=== PATIENT | male | born 1955 | race Caucasian/White ===

== ENCOUNTER 2016-10-16 22:15 | Emergency (ER) | payer BC ==
[~2016-10-16] VITALS: Ht 175.3 cm; Wt 136.0 kg
[2016-10-16 22:20] VITALS: BP 142/78; PULSE 80; RESP 20; TEMP 97.7; O2SAT 97
--- NOTE | 2016-10-16 22:35 | PD ---
HPI Chief Complaint: Respiratory Symptoms Time Seen by Provider: 22:27 Travel History International Travel<30 days: No Contact w/Intl Traveler<30days: No Traveled to known affect area: No History of Present Illness HPI 61-year-old male with history of CAD, CABG, 1 pack per day smoker, here for evaluation of cough, congestion, shortness of breath. The patient drove down here 2-3 days ago from [place] to see the car race. He reports that on the trip down here he began to have shortness of breath and cough productive of yellowish sputum. He reports similar symptoms about one month ago which cleared with antibiotics and an inhaler. He denies fevers or chills. Shortness of breath is at rest, worse with exertion. No chest pain. No history of DVT or PE. PFSH Past Medical History Hx Anticoagulant Therapy: Yes (plavix) Cardiovascular Problems: Yes Social History Alcohol Use: Yes Tobacco Use: Yes Allergies-Medications (Allergen,Severity, Reaction): Coded Allergies: No Known Allergies (Unverified , 10/16/16) Reported Meds & Prescriptions Reported Meds & Active Scripts Active Prednisone 50 Mg Tab 50 Mg PO DAILY 5 Days Zithromax Z-Cristopher (Azithromycin) 250 Mg Dspk 250 Mg PO DIRECTED 500 MG (2 tabs) day 1, then 1 tab days 2-5. Reported Ventolin Hfa 18 GM Inh (Albuterol Sulfate) 90 Mcg/Act Aer 2 Puff INH Q4-6H PRN Plavix (Clopidogrel Bisulfate) 75 Mg Tab 75 Mg PO DAILY Aldactone (Spironolactone) 25 Mg Tab 25 Mg PO DAILY Aspirin 325 Mg Tab 325 Mg PO DAILY Lisinopril 10 Mg Tab 10 Mg PO DAILY Lipitor (Atorvastatin Calcium) 80 Mg Tab 80 Mg PO HS Coreg (Carvedilol) 12.5 Mg Tab 12.5 Mg PO BID Review of Systems Except as stated in HPI: all other systems reviewed are Neg Physical Exam Narrative GENERAL: Well-developed, well-nourished, overweight, no acute distress. SKIN: Warm and dry. HEAD: Atraumatic. Normocephalic. EYES: Pupils equal and round. No scleral icterus. No injection or drainage. ENT: Mucous membranes pink and moist. NECK: Trachea midline. No JVD. CARDIOVASCULAR: Regular rate and rhythm. RESPIRATORY: No accessory muscle use. Coarse breath sounds bilaterally with inspiratory and expiratory wheezes bilaterally. Breath sounds equal bilaterally. GASTROINTESTINAL: Abdomen soft, non-tender, nondistended. MUSCULOSKELETAL: No obvious deformities. No clubbing. No cyanosis. No edema. NEUROLOGICAL: Awake and alert. No obvious cranial nerve deficits. Motor grossly within normal limits. Normal speech. PSYCHIATRIC: Appropriate mood and affect; insight and judgment normal. Data Data Last Documented VS Vital Signs Date Time Temp Pulse Resp B/P Pulse Ox O2 Delivery O2 Flow Rate FiO2 10/17/16 02:00 98.0 66 20 144/77 95 Room Air Orders Complete Blood Count With Diff (10/16/16 22:32) Basic Metabolic Panel (Bmp) (10/16/16 22:32) B-Type Natriuretic Peptide (10/16/16 22:32) D-Dimer (10/16/16 22:32) Act Partial Throm Time (Ptt) (10/16/16 22:32) Prothrombin Time / Inr (Pt) (10/16/16 22:32) Ckmb (Isoenzyme) Profile (10/16/16 22:32) Troponin I (10/16/16 22:32) Influenzae A/B Antigen (10/16/16 22:32) Iv Access Insert/Monitor (10/16/16 22:32) Electrocardiogram (10/16/16 22:32) Ecg Monitoring (10/16/16 22:32) Oximetry (10/16/16 22:32) Oxygen Administration (10/16/16 22:32) Chest, Single Ap (10/16/16 22:32) Sodium Chloride 0.9% Flush (Ns Flush) (10/16/16 22:45) Methylprednisolone So Succ Inj (Solumedr (10/16/16 22:45) Albuterol-Ipratropium Neb (Duoneb Neb) (10/16/16 22:45) Resp Acapella/Pep/Chest Vibra (10/16/16 ) CKMB (10/16/16 23:00) CKMB% (10/16/16 23:00) Sodium Chlor 0.9% 1000 Ml Inj (Ns 1000 M (10/17/16 00:00) Ct Pulmonary Angiogram (10/17/16 00:15) Iohexol 350 Inj (Omnipaque 350 Inj) (10/17/16 01:08) Albuterol Hfa Inh (Proair Hfa Inh) (10/17/16 02:00) Azithromycin (Zithromax) (10/17/16 02:00) Labs Laboratory Tests Test 10/16/16 10/16/16 23:00 23:38 White Blood Count 8.8 TH/MM3 Red Blood Count 4.36 MIL/MM3 Hemoglobin 13.7 GM/DL Hematocrit 39.3 % Mean Corpuscular Volume 90.1 FL Mean Corpuscular Hemoglobin 31.5 PG Mean Corpuscular Hemoglobin 34.9 % Concent Red Cell Distribution Width 12.7 % Platelet Count 156 TH/MM3 Mean Platelet Volume 8.7 FL Neutrophils (%) (Auto) 66.6 % Lymphocytes (%) (Auto) 19.0 % Monocytes (%) (Auto) 10.5 % Eosinophils (%) (Auto) 3.1 % Basophils (%) (Auto) 0.8 % Neutrophils # (Auto) 5.8 TH/MM3 Lymphocytes # (Auto) 1.7 TH/MM3 Monocytes # (Auto) 0.9 TH/MM3 Eosinophils # (Auto) 0.3 TH/MM3 Basophils # (Auto) 0.1 TH/MM3 CBC Comment DIFF FINAL Differential Comment Sodium Level 142 MEQ/L Potassium Level 4.0 MEQ/L Chloride Level 110 MEQ/L Carbon Dioxide Level 25.4 MEQ/L Anion Gap 7 MEQ/L Blood Urea Nitrogen 19 MG/DL Creatinine 1.30 MG/DL Estimat Glomerular Filtration 56 ML/MIN Rate Random Glucose 102 MG/DL Calcium Level 7.9 MG/DL Total Creatine Kinase 680 U/L Creatine Kinase MB 2.9 NG/ML Creatine Kinase MB % 0.4 % Troponin I LESS THAN 0.02 NG/ML B-Type Natriuretic Peptide 102 PG/ML Prothrombin Time 10.7 SEC Prothromb Time International 1.0 RATIO Ratio Activated Partial 25.2 SEC Thromboplast Time D-Dimer Quantitative (PE/DVT) 0.89 MG/L FEU [facility] Medical Decision Making Medical Screen Exam Complete: Yes Emergency Medical Condition: Yes Interpretation(s) EKG: Sinus, rate 72, left axis deviation, intraventricular conduction defect, Q waves in inferior leads, nonspecific lateral ST/T changes Differential Diagnosis Bronchitis, reactive airway disease, pneumonia, PE, ACS, pneumothorax Narrative Course Vital signs reviewed and are within normal limits. CBC is unremarkable. BMP is remarkable for BUN 19, creatinine 1.3, GFR 56, otherwise unremarkable. CK is 680. Cardiac enzymes are negative. BNP is 102. D-dimer is 0.89. Influenza is negative Chest x-ray: Minimal basilar atelectasis. Patient was given 3 DuoNeb treatments and IV Solu-Medrol and reports significant improvement in respiratory status. CT pulmonary angiogram: CONCLUSION: 1. Negative for pulmonary embolus. 2. Mild bilateral peribronchial thickening, presumably inflammatory in nature. 3. Severe coronary disease. 4. Calcified gallstone in gallbladder. Patient was made aware of all findings. He is feeling a lot better after DuoNeb treatments. He will be started on a Z-Cristopher as well as a 5 day course of prednisone. He is driving back to [place] first thing this morning. He will follow-up with his primary care physician sometime this week. He was informed on when to return to the emergency department. He verbalizes understanding and agreement with plan. Diagnosis Primary Impression: Bronchitis Referrals: Primary Care Physician 3 days Additional Instructions: Follow-up with your primary care physician this week. Return to the emergency department for worsening symptoms or any other concerns. Scripts Prednisone 50 Mg Tab50 Mg PO DAILY 5 Days Ref 0 Prov:Jose Luis Ho MD 10/17/16 Azithromycin (Zithromax Z-Cristopher)250 Mg Idsb285 Mg PO DIRECTED #1 DSPK Ref 0 500 MG (2 tabs) day 1, then 1 tab days 2-5. Prov:Jose Luis Ho MD 10/17/16 Disposition: 01 DISCHARGE HOME Condition: Stable Jose Luis Ho MD Oct 16, 2016 22:35
[2016-10-16 22:40] VITALS: O2SAT 97
[2016-10-16] MEDS: RESP: ALBUTEROL 2.5 MG/IPRATROPIUM 0.5 MG NEB (SCH) INH ×2 (22:41→22:42)
[2016-10-16] MEDS ORDERED: SODIUM CHLORIDE 0.9% FLUSH 5 ML FLUSH IVF PRN (22:45)
[2016-10-16] MEDS ORDERED: methylPREDNISolone SOD SUCC 125 MG/2 ML VIAL IVP ONE (22:45)
[2016-10-16 23:09] LABS: AUTOMATED NEUTROPHIL # 5.8 TH/MM3 (1.8-7.7); BASOPHIL # 0.1 TH/MM3 (0-0.2); BASOPHIL % 0.8 % (0.0-2.0); EOSINOPHIL # 0.3 TH/MM3 (0-0.4); EOSINOPHIL % 3.1 % (0.0-4.0); HEMATOCRIT 39.3 % (39.0-51.0); HEMO FLAGS DIFF FINAL; LYMPHOCYTE # 1.7 TH/MM3 (1.0-4.8); MEAN CELL VOLUME 90.1 FL (80.0-100.0); MEAN CORPUSCULAR HEMOGLOBIN 31.5 PG (27.0-34.0); MEAN CORPUSCULAR HGB CONC 34.9 % (32.0-36.0); MONO % 10.5 % (0.0-8.0); NEUT % 66.6 % (16.0-70.0); PLATELET COUNT 156 TH/MM3 (150-450); RED BLOOD COUNT 4.36 MIL/MM3 (4.50-5.90); RED CELL DISTRIBUTION WIDTH 12.7 % (11.6-17.2); WHITE BLOOD COUNT 8.8 TH/MM3 (4.0-11.0)
--- NOTE | 2016-10-16 23:13 | RADHPO ---
EXAM DATE/TIME: 10/16/2016 22:51 [facility] COMPARISON: No previous studies available for comparison. INDICATIONS : Short of breath. MEDICAL HISTORY : Cardiovascular disease. SURGICAL HISTORY : None. Stents ENCOUNTER: Initial ACUITY: 1 day PAIN SCORE: 7/10 LOCATION: Bilateral chest FINDINGS: A single view of the chest demonstrates pacer lead overlying right ventricle. Previous median sternot padilla. Minimal basilar atelectasis. No effusion. No pneumothorax. CONCLUSION: 1. Minimal basilar atelectasis. Luís Leon MD on October 16, 2016 at 23:11 Board Certified Radiologist. This report was verified electronically.
[2016-10-16 23:20] LABS: CHLORIDE 110 MEQ/L (98-107); SODIUM (NA) 142 MEQ/L (136-145)
[2016-10-16 23:23] LABS: ANION GAP 7 MEQ/L (5-15); BICARBONATE 25.4 MEQ/L (21.0-32.0); BLOOD UREA NITROGEN 19 MG/DL (7-18)
[2016-10-16 23:26] LABS: GLOMERULAR FILTRATION RATE 56 ML/MIN (>89)
[2016-10-16 23:29] LABS: CREATINE KINASE 680 U/L (39-308)
[2016-10-16 23:30] VITALS: BP 119/64; PULSE 73; RESP 1; RESP 20; O2SAT 97
[2016-10-16 23:42] LABS: CKMB 2.9 NG/ML (0.5-3.6)
[2016-10-17] MEDS ORDERED: SODIUM CHLOR 0.9% 1000 ML INJ 1,000 ML IV ONE
[2016-10-17 00:07] LABS: APTT (PATIENT) 25.2 SEC (24.3-30.1); PROTHROMBIN TIME - PATIENT 10.7 SEC (9.8-11.6)
[2016-10-17] MEDS ORDERED: CARV12.5 PO (00:16)
[2016-10-17] MEDS ORDERED: LISI10TA3 PO (00:17)
[2016-10-17] MEDS ORDERED: LIPI80TA PO (00:17)
[2016-10-17] MEDS ORDERED: ASPI325T PO (00:18)
[2016-10-17] MEDS ORDERED: SPIR25 PO (00:18)
[2016-10-17] MEDS ORDERED: PLAV75TA29 PO (00:19)
[2016-10-17] MEDS ORDERED: VENTAER INH (00:20)
[2016-10-17 00:30] VITALS: BP 140/91; PULSE 66; RESP 20; O2SAT 95
[2016-10-17] MEDS ORDERED: IOHEXOL 350 MG/ML 10 ML VIAL (for RAD DIAG) IV ONE (01:08)
--- NOTE | 2016-10-17 01:43 | RADHPO ---
EXAM DATE/TIME: 10/17/2016 00:36 [facility] COMPARISON: No previous studies available for comparison. INDICATIONS : Shortness of breath. IV CONTRAST: 74 cc Omnipaque 350 (iohexol) IV RADIATION DOSE: 21.97 CTDIvol (mGy) MEDICAL HISTORY : Hypertension. SURGICAL HISTORY : CABG Coronary artery stent.Pacemaker. ENCOUNTER: Initial ACUITY: 3 days PAIN SCALE: 0/10 LOCATION: chest TECHNIQUE: Volumetric scanning of the chest was performed using a pulmonary embolism protocol MIP images were re constructed. Using automated exposure control and adjustment of the mA and/or kV according to patien t size, radiation dose was kept as low as reasonably achievable to obtain optimal diagnostic quality images. FINDINGS: No filling defects in the pulmonary arteries to suggest pulmonary embolic disease. There are severe c oronary artery calcifications status post CABG and stent placement. No pleural or pericardial effusio n. No focal consolidation the lungs. There is some mild peribronchial thickening present bilaterally. No acute findings in the upper abdomen. Calcified gallstone in gallbladder. CONCLUSION: 1. Negative for pulmonary embolus. 2. Mild bilateral peribronchial thickening, presumably inflammatory in nature. 3. Severe coronary disease. 4. Calcified gallstone in gallbladder. Luís Leon MD on October 17, 2016 at 1:37 Board Certified Radiologist. This report was verified electronically.
[2016-10-17] MEDS ORDERED: PRED50 PO (01:48)
[2016-10-17] MEDS ORDERED: ZITHTAB PO (01:48)
[2016-10-17 02:00] VITALS: BP 144/77; PULSE 66; RESP 20; TEMP 98; O2SAT 95
[2016-10-17] MEDS ORDERED: ALBUTEROL SULFATE 90 MCG/ACT HFA 8 GM INHALER INH ONE (02:00)
[2016-10-17] MEDS ORDERED: AZITHROMYCIN 250 MG TAB PO ONE (02:00)
--- NOTE | 2016-10-17 12:21 | EKG ---
Date Performed: 10/16/2016 Time Performed: 22:38:56 PTAGE: 61 years EKG: Sinus rhythm . Left axis deviation IV conduction defect Lateral ST-T changes are nonspecific Abnormal ECG NO PREVIOUS TRACING DOCTOR: Ruddy Jean Baptiste Interpretating Date/Time 10/17/2016 12:21:08
== END 2016-10-17 02:21 | disposition home or self-care (01) ==
LOC: PHED 22:15
DX: J40 Bronchitis, not specified as acute or chronic (principal); Z72.0 Tobacco use
CPT/HCPCS: 71010; 71275; 80048; 82550; 82552; 83880; 84484; 85025; 85379; 85610; 85730; 87804; 93005; 94640; 94664; 94667; 96361; 96374; 99285; J2930; J7030; Q9967